=== PATIENT | female | born 1970 | race American Indian/Alaskan Native ===

== ENCOUNTER 2016-05-05 11:06 | Outpatient (CLI) | payer OTHER | END 2016-05-05 11:07 | disposition home or self-care (01) | LOC: SPVIMAG 11:06 | PROVIDERS: ATTEND Radiology Vascular & Interventional Radiology | DX: N93.9 Abnormal uterine and vaginal bleeding, unspecified (principal); R10.2 Pelvic and perineal pain | CPT/HCPCS: 72197; A9577 ==